=== PATIENT | female | born 1965 | race Caucasian/White ===

== ENCOUNTER 2018-01-02 23:35 | Emergency (ER) | payer OTHER ==
--- NOTE | 2018-01-02 23:47 | ED Physician Documentation ---
General Adult - HISTORIAN Historian: patient - HPI Chief Complaint: General Adult (allergic reaction) Additional Information: Patient believes that she might be allergic to cats. The is a cat in the house where she lives. She is gone during the week she does OK. Has been having some increase problems today mainly of head congestion, sneezing and some mild wheezing, eyes have been itching and watery. Has been having some increase problems each time she is exposed to the cat. Has taken taken some certiazine and bendaryl without relief. Has been wheezing some but has asthma also. Onset: hours Timing: still present - ROS CONST: no problems. denies: fever, chills - PAST HX Past History: asthma Surgeries/Procedures: other (hemorrhoidectomy) Allergies/Adverse Reactions: Allergies Allergy/AdvReac Type Severity Reaction Status Date / Time Penicillins Allergy Intermediate Rash Verified 01/02/18 23:46 Home Medications: Ambulatory Orders Medication Instructions Recorded Albuterol Sulfate [ProAir 1 puff INH DIRECTED 01/02/18 RespiClick] Mometasone/Formoterol [Dulera 100 1 puff INH DIRECTED 01/02/18 Mcg/5 Mcg Inhaler] - SOCIAL HX Smoking History: quit greater than 1 year Alcohol Use: none Drug Use: none - FAMILY HX Family History: No - REVIEWED ASSESSMENTS Nursing Assessment Reviewed: Yes Vitals Reviewed: Yes Progress - Progress Progress: Patient advised of possible adverse reactions to the steroid injections as well as possible benefits. General Adult Physical Exam - PHYSICAL EXAM GENERAL APPEARANCE: anxious EENT: ENT inspection normal, pharynx normal, other (no swelling noted to the pharynx area. Mild clear nasal drainage, nasal mucosa slight red and boggy. ) NECK: normal inspection, thyroid normal, supple. No: lymphadenopathy RESPIRATORY: no resp distress, chest non-tender, breath sounds normal. No: wheezes, rales, rhonchi CVS: reg rate & rhythm, heart sounds normal, equal pulses, no murmur SKIN: warm/dry, normal color NEURO: oriented X3, CN's nml as tested, mood/affect nml, cognition normal Discharge Clincal Impression: Allergic reaction Referrals: Primary Doctor,No [Primary Care Provider] - 2 Days Additional Instructions: Continue taking an antihistamine as needed. Start taking Flonase 1-2 sprays in each nostril daily. Take with your spouse about options for the cat. If you start to have any other problems to see your primary care provider or return tot he ED. Condition: Stable Disposition: 01 HOME, SELF-CARE Decision to Admit: NO Date of Decison to Admit: 01/02/18 Decision Time: 23:57
[2018-01-02] MEDS ORDERED: methylPREDNISolone SOD SUCC 125 MG/2 ML VIAL IM ONE (23:55)
[2018-01-02 23:56] VITALS: BP 127/78
== END 2018-01-03 00:08 | disposition home or self-care (01) ==
LOC: ED 23:35
DX: T78.40XA Allergy, unspecified, initial encounter (principal); Y99.9 Unspecified external cause status
CPT/HCPCS: 96372; 99283; J2930